=== PATIENT | female | born 1960 | race Caucasian/White ===

== ENCOUNTER 2024-04-06 07:34 | Day surgery (SDC) | payer OTHER ==
[2024-03-31 13:22] VITALS: BMI 37.2
[~2024-04-06 07:34] MED LIST: ALPRAZolam 0.25 MG TAB PO PRN; ALPRAZolam 0.5 MG TAB PO PRN; NITROGLYCERIN SL TABS 0.4 MG TAB SUBLINGUAL PRN
[2024-04-06] MEDS: ASPIRIN 81 MG PO STA (07:50)
[2024-04-06] MEDS: SODIUM CHLORIDE 0.9% 1,000 ML in EMPTY BAG 1 BAG IV SCH (07:50)
[2024-04-06] MEDS: ASPIRIN 325 MG TAB PO ONE (07:50)
[2024-04-06] MEDS: IV FLUID CONTINUATION 1,000 ML IV ONE (07:51)
[2024-04-06 07:59] VITALS: RESP 16; TEMP 98.2
[2024-04-06] MEDS: HEPARIN SODIUM,PORCINE 10,000 UNIT in SODIUM CHLORIDE 0.9% 1,000 ML IRRIGATION PRN (09:05)
[2024-04-06] MEDS: HEPARIN SODIUM,PORCINE (1 ML) 2,500 UNIT in SODIUM CHLORIDE 0.9% 250 ML IRRIGATION PRN (09:05)
[2024-04-06] MEDS: LIDOCAINE 1% INJ 10MG/ML (20 ML MDV) SQ ONE (09:49)
[2024-04-06] MEDS: MIDAZOLAM 2 MG/2 ML VIAL IVP ONE (09:50)
[2024-04-06] MEDS: IOPAMIDOL-370 100ML BTL INJ ONE (10:06)
[2024-04-06] MEDS ORDERED: RX INFO: IV CONTRAST WAS GIVEN 1 EACH MISC MISCELLANE PRN (10:08)
--- NOTE | 2024-04-06 10:11 | P.PCN ---
Date of Procedure: 04/06/24 Operative Findings: CARDIAC CATHETERIZATION PERFORMING PHYSICIAN: Teddy Salter MD, RPVI PROCEDURE PERFORMED: 1. Selective right and left coronary angiogram 2. Left heart catheterization 3. Ultrasound-guided access of the right common femoral artery and the right common femoral artery angiogram INDICATION: Symptomatic 63-year-old female patient with abnormal myocardial perfusion imaging stress test COMPLICATION: None APPROACH: Right common femoral artery LEVEL OF SEDATION: Moderate with sedation in length of 16 minutes PROCEDURE DESCRIPTION: After obtaining an informed consent, the patient was brought to cardiac medical laboratory specialist. Local anesthesia was performed using lidocaine subcutaneously. The right common femoral artery was cannulated using micropuncture technique and ultrasound guidance a micropuncture wire passed easily then I placed a 5/6 [place] sheath at the right common femoral artery. Selective right and left coronary angiogram using a 6-St [place]ian JR4 and JL catheters. Following that we did left heart catheterization using 6-[place]ian pigtail cath eter. Finally selective right common femoral artery angiogram was performed The procedure was completed there was no complication. SELECTIVE CORONARY ANGIOGRAM: The right coronary artery: Large-caliber vessel and a dominant vessel with mild disease involving the PDA only Left main: Is angiographically normal The left circumflex: Large-caliber vessel nondominant vessel appears to be angiographically normal and gives rise into first and second obtuse marginal branches both appear to be normal The left anterior descending artery: Large-caliber vessel. This angiographically normal with gives rise into a large diagonal branch which seems to be normal HEMODYNAMICS: LVEDP was 14 mmHg with no significant gradient across aortic valve CONCLUSION: 1. Mild nonobstructive CAD 2. Normal left-sided filling pressure POSTPROCEDURE MANAGEMENT: Medical treatment
[2024-04-06] MEDS ORDERED: SODIUM CHLORIDE 0.9% 1,000 ML IV SCH (10:15)
[2024-04-06 15:58] VITALS: BP 162/74; PULSE 58
== END 2024-04-06 16:45 | disposition home or self-care (01) ==
LOC: CATHCVL 07:34
PROVIDERS: ATTEND Internal Medicine Interventional Cardiology
DX: R06.02 Shortness of breath
CPT/HCPCS: 93458